=== PATIENT | female | born 1975 | race Caucasian/White ===

== ENCOUNTER 2018-08-31 09:01 | Emergency (ER) | payer OTHER ==
[~2018-08-31] VITALS: Ht 147.3 cm; Wt 95.3 kg
[2018-08-31] MEDS: ASPIRIN 81 MG TAB.CHEW PO ONE (10:09)
[2018-08-31 10:14] LABS: BASOPHILS % (AUTO) 0.4 % (0.0-2.0); EOSINOPHILS # (AUTO) 0.1 K/uL (0-0.4); HEMATOCRIT 34.1 % (36-48); HEMOGLOBIN 11.2 g/dL (12.0-16.0); LYMPHOCYTES # (AUTO) 2.7 K/uL (2.5-16.5); LYMPHOCYTES % (AUTO) 38.2 % (20.5-51.1); MEAN CORPUSCULAR HEMOGLOBIN 28 pg (27-31); MEAN CORPUSCULAR HGB CONC 33 g/dL (33-37); MEAN CORPUSCULAR VOLUME 84.3 fL (80-94); MONOCYTES # (AUTO) 0.4 K/uL (0.8-1.0); NEUTROPHILS # (AUTO) 3.8 K/uL (1.8-7.7); NEUTROPHILS % (AUTO) 54.4 % (42.2-75.2); PLATELET COUNT (AUTO) 317 K/uL (140-450); RED BLOOD CELL COUNT(AUTO) 4.04 MIL/uL (4.20-5.40)
[2018-08-31 10:44] LABS: PROTHROMBIN TIME 9.3 secs (10.8-13.4)
[2018-08-31 10:58] LABS: CARBON DIOXIDE 25.2 mmol/L (21-32); CREATININE 0.7 mg/dL (0.6-1.3); TOTAL BILIRUBIN 0.2 mg/dL (0.0-1.0)
[2018-08-31 10:59] LABS: ALBUMIN 3.2 g/dL (3.4-5.0)
[2018-08-31 11:01] LABS: ANION GAP 15.3 (8-16); POTASSIUM 3.5 mmol/L (3.5-5.1)
[2018-08-31] MEDS: KETOROLAC 30 MG/ML VIAL IVP ONE (11:57)
[2018-08-31 11:58] VITALS: BP 155/85
== END 2018-08-31 11:57 | disposition home or self-care (01) ==
LOC: MED 09:01
DX: R56.9 Unspecified convulsions (principal); R07.89 Other chest pain; E11.9 Type 2 diabetes mellitus without complications
CPT/HCPCS: 36415; 71045; 80053; 82948; 84484; 85025; 85610; 85730; 93005; 96372; 99284; Q0092

== ENCOUNTER 2019-01-05 11:23 | Emergency (ER) | payer OTHER ==
[~2019-01-05] VITALS: Ht 121.9 cm; Wt 90.7 kg
[2019-01-05 11:33] VITALS: BP 157/93
--- NOTE | 2019-01-05 11:40 | NUR ---
C/O HEAD PAIN STATUS POST HEAD INJURY X 1 MONTH. PT STATES SHE CANNOT AMBULATE WELL AND WAS STANDING UP TO WASH HADS. PT LOST BALANCE AND FELL BACK AND HIT HEAD. DENIES LOC, DENIES BLURRY VISION, DENIES N/V/D, FEVER. SKIN IS PINK/WARM/DRY; AWAKE, ALERT. LUNGS CLEAR BL; HR EVEN AND REGULAR; PT DENIES ANY FEVER, CP, SOB, OR COUGH AT THIS TIME; PATIENT STATES PAIN OF 2/10 AT THIS TIME; VSS; PATIENT SITTING IN HER WHEELCHAIR, FAMILY AT BEDSIDE. ER MD MADE AWARE OF PT STATUS.
[2019-01-05] MEDS ORDERED: KETOROLAC 60 MG/2 ML VIAL IM ONE (12:25)
--- NOTE | 2019-01-05 12:40 | NUR ---
PATIENT MEDICATED FOR HEAD PAIN.FAMILY WITH PATIENT.
--- NOTE | 2019-01-05 13:00 | NUR ---
PT RETURNED FROM CT VIA WHEELCHAIR AT THIS TIME.
--- NOTE | 2019-01-05 14:00 | NUR ---
PT STATED HEADACHE RELIEVED. FATHER AT BEDSIDE.
[2019-01-05 14:40] VITALS: BP 155/90
--- NOTE | 2019-01-05 14:41 | NUR ---
Patient discharged with v/s stable. Written and verbal after care instructions given and explained. Patient verbalized understanding. Wheel Chair Assisted by parent. All questions addressed prior to discharge. Advised to follow up with PMD.
== END 2019-01-05 14:41 | disposition home or self-care (01) ==
LOC: MED 11:23
DX: G91.9 Hydrocephalus, unspecified (principal); E11.9 Type 2 diabetes mellitus without complications
CPT/HCPCS: 70450; 96372; 99284; J1885